=== PATIENT | male | born 1970 | race Caucasian/White ===

== ENCOUNTER → 2019-05-02 12:11 | Outpatient (BNVA) | payer OTHER, SELFPAY | PROVIDERS: Family Provider Family Medicine; Visit Provider Nurse Practitioner | DX: S99.912A Unspecified injury of left ankle, initial encounter (principal); X58.XXXA Exposure to other specified factors, initial encounter; M25.572 Pain in left ankle and joints of left foot | CPT/HCPCS: 73610 ==

== ENCOUNTER → 2024-01-02 10:47 | Outpatient (BNVA) | payer SELFPAY | PROVIDERS: Visit Provider Registered Nurse Neonatal Intensive Care | DX: M19.031 Primary osteoarthritis, right wrist (principal); M25.531 Pain in right wrist | CPT/HCPCS: 73110 ==

== ENCOUNTER → 2024-04-21 15:31 | Outpatient (BNVA) | payer SELFPAY | PROVIDERS: Visit Provider Emergency Medicine | DX: R05.9 Cough, unspecified (principal) | CPT/HCPCS: 87400 ==

== ENCOUNTER 2024-06-18 12:17 | Outpatient (CLI) | payer SELFPAY ==
--- NOTE | 2024-06-18 12:26 | XR_ITS ---
WS: [id number] XR hip LT 2-3V wo/w pel* [id number] REASON FOR EXAM: acute groin pain FINDINGS: No fracture or focal bone lesion. Mild narrowing of the posterior inferior joint space with moderate subchondral sclerosis and osteophytosis of the patella. Mild osteophytosis of the femoral head. No soft tissue abnormality. XR/XR hip LT 2-3V wo/w pel* [id number] IMPRESSION: Mild osteoarthritis of the left hip as above.
== END 2024-06-18 12:18 | disposition home or self-care (01) ==
PROVIDERS: Visit Provider Emergency Medicine
DX: R10.32 Left lower quadrant pain (principal); M16.12 Unilateral primary osteoarthritis, left hip; M25.752 Osteophyte, left hip; R93.6 Abnormal findings on diagnostic imaging of limbs
CPT/HCPCS: 73502